=== PATIENT | female | born 1945 | race Caucasian/White ===

== ENCOUNTER → 2016-12-23 | Outpatient (CLI) | payer OTHER, MEDICARE ==
[~2016-12-23] MED LIST: ACET-1256 PO; ACET-24 PO; ASPEC81 PO; CLB200 PO; ONDA8TAB6 PO; PRLSR20 PO; RXC5 PO
[2016-12-23 14:22] LABS: CHOLESTEROL/HDL RATIO 2.5
== END | disposition home or self-care (01) ==
LOC: C.LABMFLN 08:44
PROVIDERS: ATTEND Family Medicine
DX: E78.5 Hyperlipidemia, unspecified (principal); K75.9 Inflammatory liver disease, unspecified

== ENCOUNTER → 2017-04-27 | Outpatient (CLI) | payer OTHER, MEDICARE ==
[2017-04-27 13:10] LABS: URINE APPEARANCE CLEAR (CLEAR); URINE BILIRUBIN NEG (NEG); URINE COLOR YELLOW; URINE NITRITE NEG (NEG); URINE PH 5.5 (4.5-7.5); URINE SPECIFIC GRAVITY 1.009 (1.000-1.030); UROBILINOGEN NEG (NEG)
[2017-04-27 13:21] LABS: MANUAL MICROSCOPIC REQUIRED? YES; REVIEW REQ? NO
[2017-04-27 13:31] LABS: URINE RBC 0-4 /hpf (0-4)
[2017-04-27 13:32] LABS: URINE BACTERIA NEG (NEG)
== END | disposition home or self-care (01) ==
LOC: C.LABMFLN 10:29
PROVIDERS: ATTEND Family Medicine
DX: N39.0 Urinary tract infection, site not specified (principal)

== ENCOUNTER 2017-05-24 07:15 | Inpatient (IN) | payer OTHER, MEDICARE ==
--- NOTE | 2017-04-21 15:16 | PAT Medication Instructions ---
Service Date Apr 21, 2017. Current Home Medication List Acetaminophen (Tylenol), 500 MG PO PRN Omeprazole (Prilosec), 20 MG PO PRN Medication Instructions For Your Scheduled Surgery - Take the following medications the morning of surgery with a sip of water OTHERWISE NOTHING TO EAT OR DRINK AFTER MIDNIGHT: Acetaminophen (Tylenol), 500 MG PO PRN (may use if needed up to 4 hours prior to surgery) Omeprazole (Prilosec), 20 MG PO PRN If you have any questions please call us at [phone] or [phone] or [phone]
[2017-04-21 15:59] LABS: BASO % 0.7 %; BASO ABS # 0.05 K/uL (0-0.2); COMPLETE YES; EOS % 5.2 %; IG% 0.1 %; LYMPH % 32.2 %; LYMPH ABS # 2.31 K/uL (1.2-3.4); MEAN CELL VOLUME 90.9 fL (80-100); MEAN CORPUSCULAR HEMOGLOBIN 30.2 pg (25-34); MEAN CORPUSCULAR HGB CONC 33.2 g/dl (32-36); MEAN PLATELET VOLUME 9.4 fL (7.4-10.4); MONO % 5.7 %; NEUT % 56.1 %; PLATELET COUNT 262 K/uL (130-400); RED BLOOD COUNT 4.51 M/uL (4.2-5.4); WHITE BLOOD COUNT 7.18 K/uL (4.8-10.8)
--- NOTE | 2017-04-21 16:02 | DIAGNOSTIC IMAGING REPORT ---
CHEST PREADMISSION(PA/LAT) CLINICAL HISTORY: PAT preoperative evaluation COMPARISON STUDY: No previous studies for comparison. FINDINGS: The bones soft tissues and hemidiaphragms are normal. The cardiomediastinal silhouette is normal. The lungs are clear. The pulmonary vasculature is normal. IMPRESSION: Negative chest. The above report was generated using voice recognition software. It may contain grammatical, syntax or spelling errors. Electronically signed by: Naveen Ladd M.D. 04/21/2017 4:01 PM Dictated Date/Time: 04/21/2017 4:01 PM
[2017-04-21 16:03] LABS: URINE APPEARANCE CLEAR (CLEAR); URINE BILIRUBIN NEG (NEG); URINE COLOR YELLOW; URINE EPITHELIAL CELL AUTO 20-30 /lpf (0-5); URINE NITRITE NEG (NEG); URINE PH 5.5 (4.5-7.5); URINE SPECIFIC GRAVITY 1.013 (1.000-1.030); UROBILINOGEN NEG (NEG); ZZUR CULT IF INDIC CLEAN CATCH NO
[2017-04-21 16:16] LABS: MANUAL MICROSCOPIC REQUIRED? NO; REVIEW REQ? NO
[2017-04-21 16:26] LABS: BUN/CREATININE RATIO 20.9 (10-20); CREATININE 0.69 mg/dl (0.60-1.20); PARTIAL THROMBOPLASTIN RATIO 1.1; POTASSIUM 4.1 mmol/L (3.5-5.1); PROTHROMBIN TIME (PATIENT) 10.3 SECONDS (9.0-12.0)
[2017-04-22 08:32] LABS: ESTIMATED AVERAGE GLUCOSE 108 mg/dl; HA1C FLAG Normal (Normal)
--- NOTE | 2017-05-23 18:53 | HISTORY & PHYSICAL EXAMINATION ---
DATE OF ADMISSION: 05/24/2017 CHIEF COMPLAINT: Chronic right knee pain. HISTORY OF PRESENT ILLNESS: This is a 71-year-old female patient of Dr. Wong. She is complaining of chronic right knee pain, longstanding, now progressively getting worse. The patient has failed conservative treatment including intraarticular injections, the use of anti-inflammatories and Tylenol. She has completed home exercise program and the use of a sleeve on her knee. The patient has failed conservative treatment and wished to proceed with a right total knee arthroplasty. PAST MEDICAL HISTORY: Osteoarthritis, acid reflux. SOCIAL HISTORY: Nonsmoker, nondrinker. PAST SURGICAL HISTORY: Back fusion, hysterectomy, bladder surgery, and wrist surgery. FAMILY HISTORY: Noncontributory. REVIEW OF SYSTEMS: The patient complains of chronic right knee pain and instability. Otherwise, denies any shortness of breath, chest pain, nausea, vomiting or any other joint complaints. MEDICATIONS: Include none. ALLERGIES: CIPRO WHICH CAUSES LEVEL OF LIVER FAILURE. PHYSICAL EXAMINATION: GENERAL: Well-developed, well-nourished 71-year-old female in no acute distress. She is alert and oriented x3 and pleasant. HEENT: Normocephalic, atraumatic. Extraocular motions are intact. Pupils are equal and reactive to light. HEART: Regular rate and rhythm, no murmurs appreciated. LUNGS: Clear. ABDOMEN: Soft and nontender, bowel sounds are present. EXTREMITIES: Right knee reveals limited range of motion of 0-115 degrees. She has a varus deformity. She has medial joint line tenderness. She has a mild effusion with crepitation. She has 5/5 strength. NEUROLOGIC: Neurovascularly, she is intact in her right lower extremity. DIAGNOSES: Right knee end-stage osteoarthritis, acid reflux. PLAN: The patient was advised of her diagnoses. Indications, risks, benefits, and postop course have all been reviewed. The patient wishes to proceed with a right total knee arthroplasty. Necessary consent forms, preoperative testing and clearances will be obtained.
[~2017-05-24] VITALS: Ht 149.9 cm; Wt 67.0 kg
[2017-05-24] VITALS (9 sets, daily range): BP systolic 103–156; BP diastolic 62–78; PULSE 65–99; TEMP 36.3–36.6; O2SAT 91–96; Ht 149.9 cm; Wt 67.0 kg
[~2017-05-24 07:15] MED LIST changes: -ACET-24 PO; +ACETAMINOPHEN 500 MG TAB PO SCH; -ASPEC81 PO; +BUPIVACAINE 0.5 % 5 MG/1 ML PF 10ML VIAL ONE; +CEFAZOLIN 1000MG/55 ML D5W 55 ML IV SCH; -CLB200 PO; +CeleBREX 200 MG CAP PO SCH; +DEXAMETHASONE 4 MG TAB PO SCH; +FAMOTIDINE 20 MG TAB PO SCH; +GABAPENTIN 300 MG CAP PO SCH; +LACTATED RINGER'S 1000ML 1,000 ML IV SCH; +LACTATED RINGER'S 1000ML 500 ML IV ONE; +LACTATED RINGER'S 1000ML IV SCH; +METOCLOPRAMIDE HCL 10 MG TAB PO SCH; -ONDA8TAB6 PO; +ROPIVACAINE 0.5% 5 MG/ML 30 ML VIAL ONE; +ROPIVACAINE 5MG/ML 30 ML 150 MG, BUPIVACAINE/EPINEPHR 0.5% MPF 30 ML, KETOROLAC TROMETH... INFIL SCH; -RXC5 PO
[2017-05-24] MEDS ORDERED: MIDAZOLAM HCL 1 MG/ML 2ML VIAL ONE (07:57)
[2017-05-24] MEDS ORDERED: LIDOCAINE HCL 2% 2 ML VIAL (20MG/ML) ONE (07:58)
[2017-05-24] MEDS ORDERED: FENTANYL CITRATE INJ 50 MCG/1 ML 2 ML VIAL ONE (07:58)
[2017-05-24] MEDS ORDERED: PROPOFOL IV EMULSION 10 MG/ML 20 ML VIAL IV ONE (07:58)
[2017-05-24] MEDS ORDERED: EpHEDrine SULFATE INJ 50 MG/ML AMP IV PRN (08:15)
[2017-05-24] MEDS ORDERED: ATROPINE SULFATE 0.1 MG/ML 5ML SYR IV PRN (08:15)
[2017-05-24] MEDS ORDERED: PHENYLEPHRINE 100MCG/ML 5ML SYR IV PRN (08:15)
[2017-05-24] MEDS ORDERED: ONDANSETRON INJ 2 MG/ML 2 ML VIAL IV PRN ×2 (08:15→12:30)
[2017-05-24] MEDS ORDERED: HYDROmorphone INJ 2 MG/ML SYR/VIAL IV PRN (08:15)
--- NOTE | 2017-05-24 09:01 | History & Physical Bridge Note ---
H&P Re-Evaluation Bridge Note: I have examined the patient, reviewed the History & Physical and in the interval since the performance of the History & Physical I have noted the following changes of clinical significance: No changes noted
[2017-05-24] MEDS ORDERED: BACITRACIN 50000 UNIT VIAL ONE (09:20)
[2017-05-24] MEDS ORDERED: POVIDONE-IODINE OP SOLN 30 ML BTL ONE (09:20)
[2017-05-24] MEDS ORDERED: ORTHO JOINT ANESTHETIC ONE (09:20)
[2017-05-24] MEDS: TRANEXAMIC ACID INJ 1,000 MG in SODIUM CHLORIDE 0.9% 100ML 100 ML IV SCH ×2 (10:20→14:16)
[2017-05-24] MEDS ORDERED: ONDANSETRON INJ 2 MG/ML 2 ML VIAL ONE (10:53)
[2017-05-24] MEDS ORDERED: EpHEDrine SULFATE INJ 50 MG/ML AMP ONE (10:53)
[2017-05-24] MEDS ORDERED: EpHEDrine SULFATE 50MG/5ML SYR ONE (11:03)
--- NOTE | 2017-05-24 12:03 | [facility] Post Operative Brief Note ---
Immediate Operative Summary Operative Date May 24, 2017. Pre-Operative Diagnosis Right Knee, End-Stage Osteoarthritis Post-Operative Diagnosis Same as preoperative Procedure(s) Performed Right Total Knee Arthroplasty Surgeon Dr. Brian Wong Account Executive [employer] Surgeon(s) Naveen Feng PA-C Estimated Blood Loss 5ML Findings tricompartmental djd oa grade 4 medial and partial acl tear varus Specimens A.) Right Knee Bone and Tissue Drains 2 hemovac Anesthesia spinal general and orhtoimix ADDUCTOR BLOCK Complication(s) None Disposition Recovery Room / PACU
[2017-05-24] MEDS ORDERED: MAGNESIUM HYDROXIDE SUSP 30 ML UDC PO PRN (12:30)
[2017-05-24] MEDS ORDERED: BISACODYL 10 MG SUPP PR PRN (12:30)
[2017-05-24] MEDS ORDERED: METOCLOPRAMIDE HCL INJ 5 MG/ML 2 ML VIAL IV PRN (12:30)
[2017-05-24] MEDS ORDERED: ZOLPIDEM TARTRATE 5 MG TAB PO PRN (12:30)
[2017-05-24] MEDS ORDERED: MoRPHine SULFATE 2 MG/ML CARP IV PRN (12:30)
[2017-05-24] MEDS ORDERED: TRAMADOL HCL 50 MG TAB PO PRN (12:30)
[2017-05-24] MEDS ORDERED: SOD PHOSPHATE/SOD BIPHOSPHATE ENEMA 132 ML BTL PR PRN (12:30)
--- NOTE | 2017-05-24 13:26 | DIAGNOSTIC IMAGING REPORT ---
RIGHT KNEE 2 VIEWS History: Right total knee arthroplasty. Degenerative arthritis. Postop. FINDINGS: The patient is status post a right total knee arthroplasty. The hardware is intact. No fracture or dislocation. Skin dalia and surgical drains are in place. IMPRESSION: Right total knee arthroplasty. No evidence for hardware complication. Electronically signed by: Aurelio Watkins M.D. 05/24/2017 1:24 PM Dictated Date/Time: 05/24/2017 1:24 PM
--- NOTE | 2017-05-24 13:30 | Anesthesiology Progress Note ---
Anesthesia Post Op Note Date & Time May 24, 2017 at 13:29 Vital Signs Pain Intensity: 0 Vital Signs Past 12 Hours Date Time Temp Pulse Resp B/P (MAP) Pulse Ox O2 Delivery O2 Flow Rate FiO2 05/24/17 13:10 36.5 97 16 112/57 95 Nasal Cannula 4 05/24/17 13:00 36.5 96 16 116/61 93 Nasal Cannula 3 05/24/17 12:50 36.5 98 16 124/59 93 Nasal Cannula 3 05/24/17 12:40 96 16 114/57 93 Nasal Cannula 3 05/24/17 12:30 100 16 132/61 95 Oxymask 8 05/24/17 12:22 36.4 106 16 121/56 94 Oxymask 8 05/24/17 08:02 36.6 65 20 156/78 95 Room Air Notes Mental Status: alert / awake / arousable, participated in evaluation Pt Amnestic to Procedure: Yes Nausea / Vomiting: adequately controlled Pain: adequately controlled Airway Patency, RR, SpO2: stable & adequate BP & HR: stable & adequate Hydration State: stable & adequate Anesthetic Complications: no major complications apparent
[2017-05-24] MEDS: D5W AND 1/2NSS + 20MEQ KCL 1,000 ML IV SCH ×2 (14:31→23:42)
--- NOTE | 2017-05-24 14:46 | Medical Consult ---
Consultation Date of Consultation: May 24, 2017. Attending Physician: Brian Wong M.D. Reason for Consultation: Medical management History of Present Illness Patient is a pleasant 71 y/o female, with PMHx of acid reflux, s/p R TKA by Dr. Wong on 05/24. Patient is feeling well postop. Sitting in bed eating dinner. Admits to some lightheadedness/double vision postop, but it is almost resolved. No flatus/BM postop. Pain is well controlled. Patient denies any fever, chills, sweats, dizziness, CP, palpitations, edema, SOB, wheezing, cough, abdominal pain , nausea, vomiting, diarrhea, urinary symptoms, melena, numbness/tingling, weakness, anxiety/depression, active bleeding, or new skin discoloration/ changes. Past Medical/Surgical History Past Medical History: GERD PAST SURGICAL HISTORY: Back fusion hysterectomy bladder surgery wrist surgery Family History Noncontributory Social History Smoking Status: Never Smoker Smokeless Tobacco Use: No Alcohol Use: none Drug Use: none Marital Status: Housing Status: lives with family Occupation Status: retired Allergies Coded Allergies: Ciprofloxacin (Unverified Allergy, Unknown, LIVER FAILURE, 05/24/17) Home Medications Reported Home Medications Medications Dose Route/Sig Max Daily Dose Days Date Category Tylenol (Acetaminophen) 500 Mg Tab 500 Mg PO PRN 04/21/17 Reported Prilosec (Omeprazole) 20 Mg Capcr 20 Mg PO PRN 04/21/17 Reported Current Inpatient Medications Current Inpatient Medications Medications (Trade) Dose Ordered Sig/Aries Route Start Time Stop Time Status Last Admin Dose Admin Lactated Ringer's 1,000 ml @ 60 mls/hr [id number] IV 05/24/17 06:00 05/24/17 22:39 05/24/17 08:32 60 MLS/HR Cefazolin Sodium 55 ml @ 100 mls/hr PREOP IV 05/24/17 06:00 05/24/17 18:00 05/24/17 10:27 100 MLS/HR Acetaminophen (Tylenol Tab) 1,000 mg PREOP PO 05/24/17 06:00 05/24/17 18:00 05/24/17 08:45 1,000 MG Celecoxib (CeleBREX CAP) 200 mg PREOP PO 05/24/17 06:00 05/24/17 18:00 05/24/17 08:45 200 MG Dexamethasone (Decadron Tab) 8 mg PREOP PO 05/24/17 06:00 05/24/17 18:00 05/24/17 08:44 8 MG Famotidine (Pepcid Tab) 20 mg PREOP PO 05/24/17 06:00 05/24/17 18:00 05/24/17 08:44 20 MG Gabapentin (Neurontin Cap) 300 mg PREOP PO 05/24/17 06:00 05/24/17 18:00 05/24/17 08:44 300 MG Metoclopramide HCl (Reglan Tab) 10 mg PREOP PO 05/24/17 06:00 05/24/17 18:00 05/24/17 08:44 10 MG Tranexamic Acid 1000 mg/Sodium Chloride 110 ml @ 660 mls/hr TODAY@06,0630 IV 05/24/17 06:00 05/24/17 18:00 05/24/17 10:20 660 MLS/HR Lactated Ringer's 1,000 ml @ 15 mls/hr Q24H IV 05/24/17 06:00 05/25/17 05:59 Hydromorphone HCl (Dilaudid Inj) 0.5 mg Q5M PRN IV 05/24/17 08:15 05/25/17 13:30 Potassium Chloride/Dextrose/ Sod Cl 1,000 ml @ 100 mls/hr Q10H IV 05/24/17 14:15 05/25/17 14:14 05/24/17 14:31 100 MLS/HR Cefazolin Sodium 1000 mg/Dextrose 55 ml @ 100 mls/hr Q8H IV 05/24/17 16:00 05/25/17 00:32 Celecoxib (CeleBREX CAP) 200 mg BID PO 05/24/17 21:00 06/23/17 20:59 Oxycodone HCl (Roxicodone Immediate Rel Tab) 1 TABLET FOR PAIN RATING... Q4H PRN PO 05/24/17 12:30 06/07/17 12:29 Morphine Sulfate (MoRPHine SULFATE INJ) painFOR PAIN, 2-4MG ... Q2H PRN IV 05/24/17 12:30 06/07/17 12:29 Acetaminophen (Tylenol Tab) 1,000 mg Q8 PO 05/24/17 15:00 06/23/17 14:59 Magnesium Hydroxide (Milk Of Magnesia Susp) 30 ml Q6H PRN PO 05/24/17 12:30 06/23/17 12:29 Bisacodyl (Dulcolax Supp) 10 mg DAILY PRN AR 05/24/17 12:30 06/23/17 12:29 Sodium Biphosphate/ Sodium Phosphate (Fleet Enema) 132 ml DAILY PRN AR 05/24/17 12:30 06/23/17 12:29 Docusate Sodium (coLACE CAP) 100 mg BID PO 05/24/17 21:00 06/23/17 20:59 Diphenhydramine HCl (Benadryl Cap) 25 mg Q8H PRN PO 05/24/17 12:30 06/23/17 12:29 Zolpidem Tartrate (Ambien Tab) 5 mg HSZ PRN PO 05/24/17 12:30 06/23/17 12:29 Multivitamins (Multivitamin Tab) 1 tab QAM PO 05/25/17 09:00 06/24/17 08:59 Ondansetron HCl (Zofran Inj) 4 mg Q6H PRN IV 05/24/17 12:30 06/23/17 12:29 Metoclopramide HCl (Reglan Inj) 10 mg Q6H PRN IV 05/24/17 12:30 06/23/17 12:29 Pantoprazole Sodium (Protonix Tab) 40 mg QAM PO 05/25/17 09:00 06/24/17 08:59 Tramadol HCl (Ultram Tab) 1 tablet for pain rating... Q4H PRN PO 05/24/17 12:30 06/23/17 12:29 Aspirin (Ecotrin Tab) 81 mg BID PO 05/24/17 21:00 06/23/17 20:59 Physical Exam Date Time Temp Pulse Resp B/P (MAP) Pulse Ox O2 Delivery O2 Flow Rate FiO2 05/24/17 14:17 93 16 112/67 (82) 93 Nasal Cannula 2.0 05/24/17 13:41 91 Nasal Cannula 2.0 05/24/17 13:34 36.3 94 16 103/62 (76) 93 Nasal Cannula 4.0 05/24/17 13:34 94 Nasal Cannula 05/24/17 13:10 36.5 97 16 112/57 95 Nasal Cannula 4 05/24/17 13:00 36.5 96 16 116/61 93 Nasal Cannula 3 05/24/17 12:50 36.5 98 16 124/59 93 Nasal Cannula 3 05/24/17 12:40 96 16 114/57 93 Nasal Cannula 3 05/24/17 12:30 100 16 132/61 95 Oxymask 8 05/24/17 12:22 36.4 106 16 121/56 94 Oxymask 8 05/24/17 08:02 36.6 65 20 156/78 95 Room Air General Appearance: no apparent distress, + pertinent finding (O2 NC) Head: normocephalic, atraumatic Eyes: normal inspection, EOMI ENT: hearing grossly normal Neck: supple Respiratory/Chest: lungs clear, no respiratory distress, no accessory muscle use Cardiovascular: regular rate, rhythm Abdomen/GI: normal bowel sounds, non tender, soft Extremities/Musculoskelatal: no calf tenderness, no pedal edema Neurologic/Psych: alert, normal mood/affect, oriented x 3 Skin: normal color, warm/dry, no rash Assessment & Plan Patient is a pleasant 71 y/o female, with PMHx of acid reflux, s/p R TKA by Dr. Wong on 05/24. s/p R TKA by Dr. Wong on 05/24: - Pain management, IVF, PT/OT, and DVT prophylaxis as per primary team - Follow postop CBC and PRP - Encourage incentive spirometer GERD: Continue Protonix DVT prophylaxis: ASA 81 mg BID as per surgical team Code Status: LEVEL I, FULL Dispo: As per primary team Thank you for this consultation. We will continue to follow. .Attending Addendum: I have physically seen this patient, have directed the physician assistants medical activities, and agree with the H&P as noted above with the following exceptions as noted. Assessment and Plan: Status post right total knee arthroplasty on 05/[address] Wong-- Seen postoperatively is medically stable. GERD-- Continue Protonix. DVT prophylaxis-- Aspirin 81 mg by mouth twice a day.
[2017-05-24] MEDS: ACETAMINOPHEN 500 MG TAB PO SCH ×2 (15:20→21:57)
[2017-05-24] MEDS: CEFAZOLIN IV 1,000 MG in DEXTROSE 5% 50ML 50 ML IV SCH ×2 (15:30→23:41)
--- NOTE | 2017-05-24 16:29 | OPERATIVE REPORT ---
DATE OF OPERATION: 05/24/2017 INDICATION FOR PROCEDURE: The patient is a 71-year-old female with chronic bilateral knee pain. She presents with end-stage osteoarthritis of her right knee today. Radiographs demonstrate that she has tricompartmental DJD, but she is [id number] in the medial compartment with a varus knee. PREOPERATIVE DIAGNOSIS: End-stage osteoarthritis of the right knee. POSTOPERATIVE DIAGNOSIS: Same. PROCEDURE: Right total knee arthroplasty. SURGEON: Dr. Wong. ASSEMBLY LINE UPHOLSTERER: LEDY Ortiz. ANESTHESIA: Spinal, followed by general anesthetic, adductor nerve block and Orthomix. OPERATIVE PROCEDURE: The patient taken to the operating room after spinal anesthetic and an adductor nerve block. She still had some movement with intact motor function and anesthesia was not sure at this point what it was going to take, so we went ahead and placed her under LMA general anesthetic. Then a pneumatic tourniquet was placed about her right upper thigh. Right lower extremity was prepped and draped in sterile fashion. Knee exam demonstrated that she had status knee -5 through 120 degrees range of motion. Right lower extremity was prepped and draped with ChloraPrep in usual sterile fashion. Leg was elevated, exsanguinated with Esmarch bandage. Pneumatic tourniquet was raised to 325 mmHg. An anterior incision made across the knee. Skin was incised sharply. Subcutaneous flaps were elevated. Incision was made through medial retinaculum and extended up into the mid third of the quadriceps tendon and extended down to the medial tibial tubercle. Intra-articular findings demonstrated that she had tricompartmental DJD. She had a grade 4 medial compartment bone on bone. She had a partial ACL tear, significant notch stenosis with tricompartmental osteophytes including a large inferior patellar osteophyte. I used the [employer] 2.0, total knee arthroplasty system using Semasioe MRI templating. She was sized for a 4 femur and 2 tibia. The exposure was performed by excising the infrapatellar fat pad, the fat pad over the anterior femur for placement of the component in that area. I then released the lateral synovial bands. The cruciate ligaments were resected and menisci were resected. She has a fairly balanced knee, so we did not have to do any particular releases. The femur was exposed. The custom femoral cutting block was pinned in position and the distal femoral cut was made. Then the 5-in-1 cutting block was used to make the anterior, posterior and chamfer cuts. Knee was extended and a subperiosteal peel lateral release was performed around the patella. The patella width was measured and the width was reproduced using a freehand cut technique and a 29 mm patella component. The excess lateral facet was beveled off and the drill holes for the patella were made. Tibia was subluxed and the custom tibial cutting block was placed, but did have a good fit, so we used the external tibial cutting guide to make a perpendicular cut to the long axis of the tibia matching the patient's slope appropriately. A cut was made below the most efficient medial side. The lamina program aide group work was used to assess ligamentous balance in extension and flexion, ligaments were balanced. The tibia was exposed and the 2 tibial baseplate trial was externally rotated in line with the tibial tubercle, pinned in position. The punch for the stem was used and the 4 femoral trial was inserted and centered and the notch cutting devices were used, the collet was placed and an 11 insert trial polyethylene gave balanced ligaments through full range of motion and the patella tracked centrally. Trials were removed. The Orthomix anesthetic cocktail was injected per protocol. The knee was copiously irrigated with pulsatile lavage antibiotic solution with bacitracin. The final components were cemented with Simplex G cement. The final components were the Oxinium [employer] Journey 2.0 size 4 posterior stabilized right femoral component, the 2 tibial component, the 11 mm high flex posterior stabilized poly insert and a 29 mm patella. All cement cured, we used Betadine soak per protocol. The knee was copiously irrigated with antibiotic solution and bacitracin after the cement cured. Two drains were brought out laterally. Quadriceps tendon and medial were closed with interrupted [id number] #1 Vicryl sutures. The subcutaneous tissues were closed with interrupted 2-0 Vicryl, skin was closed with dalia. The patient had full range of motion at the completion of the procedure. The patient tolerated the procedure well. LEDY Ortiz was my first helper. He functioned as first helper for the entire procedure. He assisted in patient positioning; assisted in prepping, draping, soft tissue retraction, leg positioning and performed the fascial, subcutaneous and skin closure and will participate in the postoperative care of the patient. I attest to the content of the Intraoperative Record and any orders documented therein. Any exception s are noted below.
[2017-05-24] MEDS: DOCUSATE SODIUM 100 MG CAP PO SCH (20:51)
[2017-05-24] MEDS: ASPIRIN 81 MG ECTAB PO SCH (20:51)
[2017-05-24] MEDS: CeleBREX 200 MG CAP PO SCH (20:51)
[2017-05-24] MEDS: OXYCODONE HCL IR 5 MG TAB (IMMEDIATE RELEASE) PO PRN (23:53)
[2017-05-25 03:21] VITALS: BP 123/71; PULSE 70; TEMP 36.5; O2SAT 94
[2017-05-25] MEDS: ACETAMINOPHEN 500 MG TAB PO SCH ×3 (05:36→21:23)
[2017-05-25 06:28] LABS: HEMATOCRIT 33.6 % (37-47); MEAN CELL VOLUME 90.1 fL (80-100); MEAN CORPUSCULAR HGB CONC 33.3 g/dl (32-36); MEAN PLATELET VOLUME 9.5 fL (7.4-10.4); PLATELET COUNT 218 K/uL (130-400); RED BLOOD COUNT 3.73 M/uL (4.2-5.4); WHITE BLOOD COUNT 9.99 K/uL (4.8-10.8)
[2017-05-25 07:04] LABS: BUN/CREATININE RATIO 16.6 (10-20); CALCIUM 8.3 mg/dl (8.5-10.1); CREATININE 0.77 mg/dl (0.60-1.20); POTASSIUM 4.2 mmol/L (3.5-5.1)
[2017-05-25 07:42] VITALS: BP 118/72; PULSE 62; TEMP 36.5; O2SAT 97
--- NOTE | 2017-05-25 08:12 | Anesthesiology Progress Note ---
Anesthesia Post Op Note Date & Time May 25, 2017 at 08:12 Vital Signs Pain Intensity: 4.0 Vital Signs Past 12 Hours Date Time Temp Pulse Resp B/P (MAP) Pulse Ox O2 Delivery O2 Flow Rate FiO2 05/25/17 07:42 36.5 62 16 118/72 (87) 97 Room Air 05/25/17 07:35 Room Air 05/25/17 03:21 36.5 70 16 123/71 (88) 94 Room Air 05/24/17 23:40 Room Air 05/24/17 22:53 36.3 80 16 107/64 (78) 91 Room Air 05/24/17 20:15 Room Air Notes Mental Status: alert / awake / arousable, participated in evaluation Pt Amnestic to Procedure: Yes Nausea / Vomiting: adequately controlled Pain: adequately controlled Airway Patency, RR, SpO2: stable & adequate BP & HR: stable & adequate Hydration State: stable & adequate Anesthetic Complications: no major complications apparent
[2017-05-25] MEDS: ASPIRIN 81 MG ECTAB PO SCH ×2 (08:23→21:23)
[2017-05-25] MEDS: MULTIVITAMIN TAB PO SCH (08:23)
[2017-05-25] MEDS: DOCUSATE SODIUM 100 MG CAP PO SCH ×2 (08:23→21:23)
[2017-05-25] MEDS: CeleBREX 200 MG CAP PO SCH ×2 (08:23→21:24)
[2017-05-25] MEDS: PANTOprazole SOD 40 MG TAB PO SCH (08:24)
--- NOTE | 2017-05-25 09:57 | Progress Note ---
Subjective Date of Service: May 25, 2017. Subjective Pt evaluation today including: conversation w/ patient, physical exam, chart review, lab review, review of studies, conversation w/ practice consultant, review of inpatient medication list Sitting up in chair, no complaining Review of Systems Constitutional: No fever, No chills, No sweats, No weight loss, No weakness, No fatigue, No problem reported Eyes: No worsening of vision, No eye pain, No redness, No discharge, No diplopia ENT: No hearing loss, No unusual epistaxis, No nasal symptoms, No sore throat, No tinnitus, No dental problems, No trouble swallowing Respiratory: No cough, No sputum, No wheezing, No shortness of breath, No dyspnea on exertion, No dyspnea at rest, No hemoptysis Cardiac: No chest pain, No orthopnea, No PND, No edema, No claudication, No palpitations Abdomen: No pain, No nausea, No vomiting, No diarrhea, No constipation Musculoskeletal: + joint pain, No muscle pain, No swelling, No calf pain Female : No dysuria, No urinary frequency, No hematuria, No incontinence, No abnormal vaginal bleeding, No vaginal discharge Neurologic: No memory loss, No paralysis, No weakness, No numbness/tingling, No vertigo, No balance problems Psychiatric: No depression symptoms, No anhedonism, No anxiety, No insomnia, No substance abuse Heme: No abnormal bleeding/bruising, No clotting problems, No swollen lymph nodes, No night sweats Endo: No fatigue, No excessive thirst, No excessive urination Skin: No rash, No itch, No new/changing skin lesions, No color change, No bleeding Objective Vital Signs Date Time Temp Pulse Resp B/P (MAP) Pulse Ox O2 Delivery O2 Flow Rate FiO2 05/25/17 07:42 36.5 62 16 118/72 (87) 97 Room Air 05/25/17 07:35 Room Air 05/25/17 03:21 36.5 70 16 123/71 (88) 94 Room Air 05/24/17 23:40 Room Air 05/24/17 22:53 36.3 80 16 107/64 (78) 91 Room Air 05/24/17 20:15 Room Air 05/24/17 18:53 36.3 99 18 114/69 (84) 94 Room Air 05/24/17 16:42 36.3 92 18 117/65 (82) 94 Room Air 05/24/17 15:37 36.4 95 18 140/74 (96) 96 Room Air 05/24/17 14:30 95 16 117/66 (83) 95 Nasal Cannula 2.0 05/24/17 14:17 93 16 112/67 (82) 93 Nasal Cannula 2.0 05/24/17 13:41 91 Nasal Cannula 2.0 05/24/17 13:34 36.3 94 16 103/62 (76) 93 Nasal Cannula 4.0 05/24/17 13:34 94 Nasal Cannula 05/24/17 13:10 36.5 97 16 112/57 95 Nasal Cannula 4 05/24/17 13:00 36.5 96 16 116/61 93 Nasal Cannula 3 05/24/17 12:50 36.5 98 16 124/59 93 Nasal Cannula 3 05/24/17 12:40 96 16 114/57 93 Nasal Cannula 3 05/24/17 12:30 100 16 132/61 95 Oxymask 8 05/24/17 12:22 36.4 106 16 121/56 94 Oxymask 8 Physical Exam General Appearance: WD/WN, no apparent distress Eyes: normal inspection, PERRL, EOMI, sclerae normal ENT: normal ENT inspection, hearing grossly normal, pharynx normal Neck: supple, no adenopathy, thyroid normal, no JVD, no carotid bruits, trachea midline Respiratory/Chest: chest non-tender, lungs clear, normal breath sounds, no respiratory distress, no accessory muscle use Cardiovascular: regular rate, rhythm, no edema, no gallop, no JVD, no murmur Abdomen: normal bowel sounds, non tender, soft, no organomegaly, no pulsatile mass Extremities: no pedal edema, no calf tenderness, normal capillary refill, pelvis stable, + pertinent finding (right knee dress,) Neurologic/Psychiatric: sheriff sergeant II-XII nml as tested, no motor/sensory deficits, alert, normal mood/affect, oriented x 3 Skin: normal color, warm/dry, no rash Lymphatic: no adenopathy Laboratory Results Last 24 Hours Test 05/25/17 05:18 White Blood Count 9.99 K/uL Red Blood Count 3.73 M/uL Hemoglobin 11.2 g/dL Hematocrit 33.6 % Mean Corpuscular Volume 90.1 fL Mean Corpuscular Hemoglobin 30.0 pg Mean Corpuscular Hemoglobin Concent 33.3 g/dl RDW Standard Deviation 44.9 fL RDW Coefficient of Variation 13.6 % Platelet Count 218 K/uL Mean Platelet Volume 9.5 fL Sodium Level 142 mmol/L Potassium Level 4.2 mmol/L Chloride Level 110 mmol/L Carbon Dioxide Level 25 mmol/L Anion Gap 7.0 mmol/L Blood Urea Nitrogen 13 mg/dl Creatinine 0.77 mg/dl Est Creatinine Clear Calc Drug Dose 55.0 ml/min Estimated GFR () 89.4 Estimated GFR (Non- 77.1 BUN/Creatinine Ratio 16.6 Random Glucose 132 mg/dl Calcium Level 8.3 mg/dl Assessment and Plan 71 y/o female, with PMHx of acid reflux, s/p R TKA by Dr. Wong on 05/24/2017 , hospitalist consulted for medical management s/p R TKA by Dr. Wong on 05/24/2017 - Pain management, IVF, PT/OT, and DVT prophylaxis as per primary team Encourage incentive spirometer , GERD: Continue Protonix DVT prophylaxis: ASA 81 mg BID as per surgical team Code Status: LEVEL I, FULL Dispo: As per primary team Continued [facility] stay due to: home environment unsafe for pt Discharge planning: home
--- NOTE | 2017-05-25 10:03 | Orthopedic Progress Note ---
Orthopedic Progress Note Date of Service May 25, 2017. Subjective Post OP Day: 1 Reports: feeling well, pain controlled w PO medications, Denies: complaints, chest pain, SOB, nausea / vomiting, light headedness, calf pain Objective calves soft nontender, N/V intact, capillary refill less than 2 sec., dressing C /D/I, A&O x3, toes mobile Date Time Temp Pulse Resp B/P (MAP) Pulse Ox O2 Delivery O2 Flow Rate FiO2 05/25/17 07:42 36.5 62 16 118/72 (87) 97 Room Air 05/25/17 07:35 Room Air 05/25/17 03:21 36.5 70 16 123/71 (88) 94 Room Air 05/24/17 23:40 Room Air 05/24/17 22:53 36.3 80 16 107/64 (78) 91 Room Air 05/24/17 20:15 Room Air 05/24/17 18:53 36.3 99 18 114/69 (84) 94 Room Air 05/24/17 16:42 36.3 92 18 117/65 (82) 94 Room Air 05/24/17 15:37 36.4 95 18 140/74 (96) 96 Room Air 05/24/17 14:30 95 16 117/66 (83) 95 Nasal Cannula 2.0 05/24/17 14:17 93 16 112/67 (82) 93 Nasal Cannula 2.0 05/24/17 13:41 91 Nasal Cannula 2.0 05/24/17 13:34 36.3 94 16 103/62 (76) 93 Nasal Cannula 4.0 05/24/17 13:34 94 Nasal Cannula 05/24/17 13:10 36.5 97 16 112/57 95 Nasal Cannula 4 05/24/17 13:00 36.5 96 16 116/61 93 Nasal Cannula 3 05/24/17 12:50 36.5 98 16 124/59 93 Nasal Cannula 3 05/24/17 12:40 96 16 114/57 93 Nasal Cannula 3 05/24/17 12:30 100 16 132/61 95 Oxymask 8 05/24/17 12:22 36.4 106 16 121/56 94 Oxymask 8 Laboratory Results 24 Hours: Test 05/25/17 05:18 Hematocrit 33.6 % Hemoglobin 11.2 g/dL Assessment & Plan Assessment: POD #1, Right TKA Plan: PT/ OT DVT proph- ASA D/C planning - OPPT As per medicine Inhouse Planning Pain Management: Celebrex, Ultram, Dilaudid, Morphine, PO Tylenol, Oxy IR DVT Prophylaxis: TEDs, SCDs, ASA Discharge Planning Discharge Planning: home with oppt Pain Management: PO Tylenol, Oxy IR DVT Prophylaxis: TEDs, ASA Therapy: Physical Therapy, Occupational Therapy
[2017-05-25] MEDS: D5W AND 1/2NSS + 20MEQ KCL 1,000 ML IV SCH (10:10)
[2017-05-25 11:19] VITALS: BP 144/75; PULSE 67; TEMP 36.3; O2SAT 97
[2017-05-25 12:06] VITALS: BP 114/68; PULSE 80; TEMP 36.7; O2SAT 100
[2017-05-25] MEDS: OXYCODONE HCL IR 5 MG TAB (IMMEDIATE RELEASE) PO PRN ×2 (14:48→23:25)
[2017-05-25 15:08] VITALS: BP 135/72; PULSE 65; TEMP 36.6; O2SAT 97
[2017-05-25 23:17] VITALS: BP 119/61; PULSE 65; TEMP 36.8; O2SAT 93
[2017-05-26 05:40] LABS: HEMATOCRIT 32.5 % (37-47); MEAN CORPUSCULAR HEMOGLOBIN 31.1 pg (25-34); MEAN CORPUSCULAR HGB CONC 34.2 g/dl (32-36); MEAN PLATELET VOLUME 9.3 fL (7.4-10.4); PLATELET COUNT 196 K/uL (130-400); RED BLOOD COUNT 3.57 M/uL (4.2-5.4); WHITE BLOOD COUNT 7.43 K/uL (4.8-10.8)
[2017-05-26 06:19] LABS: BUN/CREATININE RATIO 22.6 (10-20); CALCIUM 8.1 mg/dl (8.5-10.1); CREATININE 0.87 mg/dl (0.60-1.20); POTASSIUM 4.2 mmol/L (3.5-5.1)
[2017-05-26] MEDS: ACETAMINOPHEN 500 MG TAB PO SCH (06:35)
[2017-05-26 06:56] VITALS: BP 119/73; PULSE 57; TEMP 36.5; O2SAT 97
[2017-05-26] MEDS: OXYCODONE HCL IR 5 MG TAB (IMMEDIATE RELEASE) PO PRN (07:35)
[2017-05-26] MEDS: PANTOprazole SOD 40 MG TAB PO SCH (07:35)
[2017-05-26] MEDS: MULTIVITAMIN TAB PO SCH (07:35)
[2017-05-26] MEDS: ASPIRIN 81 MG ECTAB PO SCH (07:36)
[2017-05-26] MEDS: CeleBREX 200 MG CAP PO SCH (07:36)
[2017-05-26] MEDS: DOCUSATE SODIUM 100 MG CAP PO SCH (07:36)
--- NOTE | 2017-05-26 08:05 | Orthopedic Progress Note ---
Orthopedic Progress Note Date of Service May 26, 2017. Subjective Post OP Day: 2 Reports: feeling well, pain controlled w PO medications, Denies: complaints, chest pain, SOB, nausea / vomiting, light headedness, calf pain Objective calves soft nontender, N/V intact, capillary refill less than 2 sec., dressing C /D/I, A&O x3, toes mobile Silverlon in tact. Date Time Temp Pulse Resp B/P (MAP) Pulse Ox O2 Delivery O2 Flow Rate FiO2 05/26/17 07:30 Room Air 05/26/17 06:56 36.5 57 16 119/73 (88) 97 Room Air 05/25/17 23:17 36.8 65 16 119/61 (80) 93 Room Air 05/25/17 19:40 Room Air 05/25/17 15:08 36.6 65 18 135/72 (93) 97 Room Air 05/25/17 12:06 36.7 80 16 114/68 (83) 100 Room Air 05/25/17 11:19 36.3 67 16 144/75 (98) 97 Room Air Laboratory Results 24 Hours: Test 05/26/17 05:12 Hematocrit 32.5 % Hemoglobin 11.1 g/dL Assessment & Plan Assessment: POD #2, Right TKA Plan: PT/ OT DVT proph- ASA D/C planning - OPPT home today. As per medicine Inhouse Planning Pain Management: Celebrex, Ultram, Dilaudid, Morphine, PO Tylenol, Oxy IR DVT Prophylaxis: TEDs, SCDs, ASA Discharge Planning Discharge Planning: home with oppt Pain Management: PO Tylenol, Oxy IR DVT Prophylaxis: TEDs, ASA Therapy: Physical Therapy, Occupational Therapy
[2017-05-26] MEDS ORDERED: ASPEC81 PO (08:17)
[2017-05-26] MEDS ORDERED: ACET-24 PO (08:17)
[2017-05-26] MEDS ORDERED: CLB200 PO (08:17)
[2017-05-26] MEDS ORDERED: RXC5 PO (08:17)
[2017-05-26] MEDS ORDERED: ONDA8TAB6 PO (08:17)
--- NOTE | 2017-05-26 08:19 | Discharge Instructions ---
Discharge Instructions Date of Service May 26, 2017. Admission Reason for Admission: Right Knee Degenerative Joint Disease Discharge Discharge Diagnosis / Problem: Right TKA Discharge Goals Goal(s): Improve function Activity Recommendations Activity Limitations: as noted below . Instructions / Follow-Up Instructions / Follow-Up ACTIVITY RECOMMENDATIONS: SELF CARE INSTRUCTIONS AFTER TOTAL KNEE REPLACEMENT A. You may need to continue a physical therapy program after discharge from the hospital. There are several options available to you. Your doctor will assist you in selecting the best one for you. 1. An out-patient facility 2 to 3 times a week for therapy or home therapy. 2. Continue working on all exercises taught to you in the hospital. Your goals should be to increase bending of your knee to 90 degrees and beyond and to fully straighten your knee. B. You may progress at your own pace from walking with a walker or crutches to a cane; then to no assistive devices. C. Make walking a part of your daily routine. Be up as much as comfortable with rest periods throughout the day. Rest with leg elevation is very important. Use the ice wrap frequently for the first 3-4 weeks. D. There are no restrictions on activities. You may ride in a car, shop, participate in global cto and all social activities. E. Wear the long elastic stockings (ROSE hose) 20 hours a day for 2 weeks after surgery. They can be removed several times a day for laundering and for a bath. F. You may shower, no tub baths until cleared by your doctor. SPECIAL CARE INSTRUCTIONS: VERY IMPORTANT TO READ AND REVIEW A. There are a few signs you need to watch for after you are home. Call [facility] if you notice any of the followin. Increased severe knee pain. Some pain is expected especially when you exercise. 2. Increased swelling in your leg or knee; pain or swelling of the calf muscle in either lower leg. 3. Any fluid drainage from the incision. 4. Shortness of breath or chest pain. B. Please call [facility] at if you have any concerns or questions about your operation or recovery. The doctor or his nurse will return your call promptly. C. You must take antibiotics before dental work, bladder, bowel or other surgery. Your doctor will provide you with a permanent care to carry describing this precaution. IMPORTANT: * REMEMBER TO TAKE ASPIRIN, 81 MG, TWICE DAILY FOR 4 WEEKS UNLESS OTHERWISE DIRECTED. THIS IS YOUR BLOOD THINNER. * HIGH RISK PATIENTS MAY BE PRESCRIBED A STRONGER BLOOD THINNER. THIS WILL BE PROVIDED AT DISCHARGE. * CALL IF INCREASED PAIN, REDNESS, DRAINAGE OR FEVER GREATER THAT 101. * WEAR ROSE HOSE 20 HOURS PER DAY FOR 2 WEEKS. * YOU MAY HAVE A LARGE BAND-AID LIKE DRESSING (SILVERON). THIS WILL REMAIN ON YOUR INCISION FOR 7 DAYS, THEN CAN BE REMOVED. IF INCISION IS LEAKING THROUGH DRESSING, CALL THE OFFICE . FOLLOW UP VISIT: If appointment is not already scheduled: Please call [facility] to make a follow-up appointment for 2 weeks after your surgery at . Current Hospital Diet Patient's current hospital diet: Regular Diet Discharge Diet Recommended Diet: Regular Diet Procedures Procedures Performed: Right Total Knee Arthroplasty Pending Studies Studies pending at discharge: no Laboratory Results Hemoglobin A1c Test 04/21/17 15:25 Range/Units Estimated Average Glucose 108 mg/dl Hemoglobin A1c 5.4 4.5-5.6 % Medical Emergencies . Who to Call and When: Medical Emergencies: If at any time you feel your situation is an emergency, please call 911 immediately. . Non-Emergent Contact Non-Emergency issues call your: Primary Care Provider . "Provider Documentation" section prepared by Naveen Feng. . VTE Core Measure Inpt VTE Proph given/why not?: Other Anticoagulation (asa), T.E.D. Stockings, SCD's [place] Drug Monitoring Program Search Results: patient reviewed within database, no issues identified
[2017-05-26 09:27] VITALS: BP 119/73; PULSE 57; TEMP 36.5; O2SAT 97
--- NOTE | 2017-05-26 10:40 | Progress Note ---
Subjective Date of Service: May 26, 2017. Subjective Pt evaluation today including: conversation w/ patient, conversation w/ family , physical exam, chart review, lab review, review of studies, conversation w/ risk control consultant, review of inpatient medication list Doing well, up and walk with walker, no dizziness, pain well controlled, no other complaint Review of Systems Constitutional: No fever, No chills, No sweats, No weight loss, No weakness, No fatigue, No problem reported Eyes: No worsening of vision, No eye pain, No redness, No discharge, No diplopia ENT: No hearing loss, No unusual epistaxis, No nasal symptoms, No sore throat, No tinnitus, No dental problems, No trouble swallowing Respiratory: No cough, No sputum, No wheezing, No shortness of breath, No dyspnea on exertion, No dyspnea at rest, No hemoptysis Cardiac: No chest pain, No orthopnea, No PND, No edema, No claudication, No palpitations Abdomen: No pain, No nausea, No vomiting, No diarrhea, No constipation Musculoskeletal: + joint pain, No muscle pain, No swelling, No calf pain Female : No dysuria, No urinary frequency, No hematuria, No incontinence, No abnormal vaginal bleeding, No vaginal discharge Neurologic: No memory loss, No paralysis, No weakness, No numbness/tingling, No vertigo, No balance problems Psychiatric: No depression symptoms, No anhedonism, No anxiety, No insomnia, No substance abuse Heme: No abnormal bleeding/bruising, No clotting problems, No swollen lymph nodes, No night sweats Endo: No fatigue, No excessive thirst, No excessive urination Skin: No rash, No itch, No new/changing skin lesions, No color change, No bleeding Objective Vital Signs Date Time Temp Pulse Resp B/P (MAP) Pulse Ox O2 Delivery O2 Flow Rate FiO2 05/26/17 09:27 36.5 57 16 97 Room Air 05/26/17 07:30 Room Air 05/26/17 06:56 36.5 57 16 119/73 (88) 97 Room Air 05/25/17 23:17 36.8 65 16 119/61 (80) 93 Room Air 05/25/17 19:40 Room Air 05/25/17 15:08 36.6 65 18 135/72 (93) 97 Room Air 05/25/17 12:06 36.7 80 16 114/68 (83) 100 Room Air 05/25/17 11:19 36.3 67 16 144/75 (98) 97 Room Air Physical Exam General Appearance: WD/WN, no apparent distress Eyes: normal inspection, PERRL, EOMI, sclerae normal ENT: normal ENT inspection, hearing grossly normal, pharynx normal Neck: supple, no adenopathy, thyroid normal, no JVD, no carotid bruits, trachea midline Respiratory/Chest: chest non-tender, lungs clear, normal breath sounds, no respiratory distress, no accessory muscle use, + decreased breath sounds Cardiovascular: regular rate, rhythm, no edema, no gallop, no JVD, no murmur Abdomen: normal bowel sounds, non tender, soft, no organomegaly, no pulsatile mass Extremities: non-tender, normal inspection, no pedal edema, no calf tenderness , normal capillary refill, pelvis stable, + pertinent finding (right knee incision looks good, local has no edema swelling / tender) 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, no motor/sensory deficits, alert, normal mood/affect, oriented x 3 Skin: normal color, warm/dry, no rash Lymphatic: no adenopathy Laboratory Results Last 24 Hours Test 05/26/17 05:12 White Blood Count 7.43 K/uL Red Blood Count 3.57 M/uL Hemoglobin 11.1 g/dL Hematocrit 32.5 % Mean Corpuscular Volume 91.0 fL Mean Corpuscular Hemoglobin 31.1 pg Mean Corpuscular Hemoglobin Concent 34.2 g/dl RDW Standard Deviation 46.4 fL RDW Coefficient of Variation 14.0 % Platelet Count 196 K/uL Mean Platelet Volume 9.3 fL Sodium Level 142 mmol/L Potassium Level 4.2 mmol/L Chloride Level 111 mmol/L Carbon Dioxide Level 25 mmol/L Anion Gap 6.0 mmol/L Blood Urea Nitrogen 20 mg/dl Creatinine 0.87 mg/dl Est Creatinine Clear Calc Drug Dose 48.7 ml/min Estimated GFR () 77.1 Estimated GFR (Non- 66.6 BUN/Creatinine Ratio 22.6 Random Glucose 85 mg/dl Calcium Level 8.1 mg/dl Assessment and Plan 71 y/o female, with PMHx of acid reflux, s/p R TKA by Dr. Wong on 05/24/2017 , hospitalist consulted for medical management s/p R TKA by Dr. Wong on 05/24/2017 - Pain management, IVF, PT/OT, and DVT prophylaxis as per primary team Encourage incentive spirometer , GERD: Continue Protonix Patient continued doing well, advised to follow-up with PCP if have any questions DVT prophylaxis: ASA 81 mg BID as per surgical team Code Status: LEVEL I, FULL Dispo: As per primary team Continued [facility] stay due to: home environment unsafe for pt Discharge planning: home
== END 2017-05-26 10:45 | disposition home or self-care (01) | DRG 470 ==
LOC: C.ACU 07:15 → C.3E 08:45 → ENRESERV 12:36
PROVIDERS: ADMIT Orthopaedic Surgery Sports Medicine; ATTEND Orthopaedic Surgery Sports Medicine
PROC: 0SRC0J9 Replacement of Right Knee Joint with Synthetic Substitute, Cemented, Open Approach (ICD-10-PCS; principal; 2017-05-24 09:45)
DX: M17.11 Unilateral primary osteoarthritis, right knee (principal); K21.9 Gastro-esophageal reflux disease without esophagitis

== ENCOUNTER → 2017-12-21 | Outpatient (CLI) | payer OTHER, MEDICARE ==
[~2017-12-21] MED LIST changes: -ACET-1256 PO; +ACET-24 PO; -ACETAMINOPHEN 500 MG TAB PO SCH; +ASPI-320 PO; -BUPIVACAINE 0.5 % 5 MG/1 ML PF 10ML VIAL ONE; -CEFAZOLIN 1000MG/55 ML D5W 55 ML IV SCH; +CLB200 PO; -CeleBREX 200 MG CAP PO SCH; -DEXAMETHASONE 4 MG TAB PO SCH; -FAMOTIDINE 20 MG TAB PO SCH; -GABAPENTIN 300 MG CAP PO SCH; -LACTATED RINGER'S 1000ML 1,000 ML IV SCH; -LACTATED RINGER'S 1000ML 500 ML IV ONE; -LACTATED RINGER'S 1000ML IV SCH; -METOCLOPRAMIDE HCL 10 MG TAB PO SCH; -ROPIVACAINE 0.5% 5 MG/ML 30 ML VIAL ONE; -ROPIVACAINE 5MG/ML 30 ML 150 MG, BUPIVACAINE/EPINEPHR 0.5% MPF 30 ML, KETOROLAC TROMETH... INFIL SCH; +RXC5 PO
[2017-12-21 13:02] LABS: ALBUMIN 3.7 gm/dl (3.4-5.0); ALT/SGPT 28 U/L (12-78); AST/SGOT 25 U/L (15-37); BLOOD UREA NITROGEN 16 mg/dl (7-18); CARBON DIOXIDE 27 mmol/L (21-32); CREATININE 0.88 mg/dl (0.60-1.20); GLUCOSE 91 mg/dl (70-99); LIPASE 75 U/L (73-393); POTASSIUM 4.2 mmol/L (3.5-5.1); SODIUM 137 mmol/L (136-145)
[2017-12-21 13:08] LABS: ALKALINE PHOSPHATASE 102 U/L (45-117); CHOLESTEROL 228 mg/dl (0-200); LDL CHOLESTEROL CALCULATED 128 mg/dl; TOTAL PROTEIN 8.3 gm/dl (6.4-8.2)
== END | disposition home or self-care (01) ==
LOC: C.LABMFLN 09:17
PROVIDERS: ATTEND Family Medicine
DX: E78.5 Hyperlipidemia, unspecified (principal); K21.9 Gastro-esophageal reflux disease without esophagitis; M71.20 Synovial cyst of popliteal space [Baker], unspecified knee; Z86.19 Personal history of other infectious and parasitic diseases

== ENCOUNTER → 2018-03-05 | Outpatient (CLI) | payer OTHER, MEDICARE | END | disposition home or self-care (01) | LOC: C.LABMFLN 08:00 | PROVIDERS: ATTEND Family Medicine | DX: N39.0 Urinary tract infection, site not specified (principal) ==

== ENCOUNTER → 2018-03-20 | Outpatient (CLI) | payer OTHER, MEDICARE | END | disposition home or self-care (01) | LOC: C.LABMFLN 12:11 | PROVIDERS: ATTEND Family Medicine | DX: N39.0 Urinary tract infection, site not specified (principal) ==